=== PATIENT | female | born 1985 | race American Indian/Alaskan Native ===

== ENCOUNTER 2017-12-16 19:37 | Emergency (ER) | payer OTHER ==
[2017-12-16 20:29] VITALS: BP 114/69
[2017-12-16] MEDS ORDERED: TYLENOL ONE (20:39)
[2017-12-16] MEDS ORDERED: TYLENOL PO ONE (20:39)
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
== END 2017-12-16 21:34 | disposition home or self-care (01) ==
LOC: ED 19:37
DX: G44.309 Post-traumatic headache, unspecified, not intractable (principal)
CPT/HCPCS: 99282